=== PATIENT | male | born 1950 | race Caucasian/White ===

== ENCOUNTER 2016-12-17 09:02 | Emergency (ER) | payer OTHER ==
[~2016-12-17] VITALS: Ht 175.3 cm; Wt 113.4 kg
[~2016-12-17 09:02] MED LIST: CHOLESTYRAMINE P4 GM PO; DIABETA5 MG PO; GLUCOVANCE 51 TABLET PO; KEFLEX500 MG PO; KEPPRA500 MG PO; LEVETIRACETAM500 MG PO; LISINOPRIL20 MG PO; METFORMIN HCL500 MG PO; PRINIVIL10 MG PO; SIMVASTATIN40 MG PO; WARFARIN SODIUM1 MG PO; WARFARIN SODIUM2 MG PO; [UNRECOGNIZED DRUG - OTHER] BOTH EYES
[2016-12-17 09:47] LABS: HEMATOCRIT 45.6 % (38.0-50.0); MCHC 31.8 G/DL (30.0-36.0); MCV 84.9 FL (86-99); MEAN PLAT.VOLUME 9.2 uM^3 (9.0-12.4); PLATELET COUNT 355 K/uL (156-360); RED BLOOD COUNT 5.37 M/uL (4.00-5.50); WHITE BLOOD COUNT 10.5 K/uL (4.1-10.2)
[2016-12-17 09:57] LABS: CHLORIDE 104 mEq/L (99-109); POTASSIUM 4.8 mEq/L (3.7-5.4); SODIUM 139 mEq/L (136-147)
[2016-12-17 09:59] LABS: GLUCOSE 235 mg/dL (70-99)
[2016-12-17 10:00] LABS: ANION GAP 9 MEQ/L (2-14)
[2016-12-17 10:03] LABS: GFR ESTIMATE (CALCULATED) 59 mL/min/
[2016-12-17 10:04] LABS: UREA NITROGEN (BUN) 23 mg/dL (9-23)
[2016-12-17 10:09] LABS: ADD MIUA? NO; BILIRUBIN NEGATIVE; BLOOD NEGATIVE; COLOR STRAW ((YELLOW)); GLUCOSE (STRIP) >=500; KETONES NEGATIVE; LEUKOCYTES NEGATIVE; NITRITE NEGATIVE; PROTEIN (STRIP) 30; SPECIFIC GRAVITY 1.012 (1.000-1.030); UCUL ADDED? NO; UROBILINOGEN 0.2 MG/DL (0.2-1.0)
[2016-12-17] MEDS ORDERED: BACTRIM,SEPT1 TABLET PO ×2 (10:23→10:25)
[2016-12-17 10:28] VITALS: BP 146/88
== END 2016-12-17 10:50 | disposition home or self-care (01) ==
LOC: EME 09:02
PROVIDERS: Emergency Medicine
DX: M79.671 Pain in right foot (principal); R60.1 Generalized edema; E11.9 Type 2 diabetes mellitus without complications; I10 Essential (primary) hypertension; Z87.440 Personal history of urinary (tract) infections; Z79.84 Long term (current) use of oral hypoglycemic drugs
CPT/HCPCS: 80048; 81003; 85027; 87040; 99281; 99284

== ENCOUNTER 2017-10-10 09:55 | Day surgery (SDC) | payer OTHER ==
[~2017-10-10] VITALS: Ht 172.7 cm; Wt 122.9 kg
[~2017-10-10 09:55] MED LIST changes: +BACTRIM,SEPT1 TABLET PO; +GLYBURIDE5 MG PO; -LISINOPRIL20 MG PO; +LISINOPRIL30 MG PO; +PIOGLITAZONE HC45 MG PO
[2017-10-10 11:01] LABS: INTER. NORMALIZED RATIO 1.2
== END 2017-10-10 17:25 | disposition home or self-care (01) ==
LOC: CATH 09:55
PROVIDERS: Internal Medicine Cardiovascular Disease
PROC: 4A023N7 Measurement of Cardiac Sampling and Pressure, Left Heart, Percutaneous Approach (ICD-10-PCS; principal; 2017-10-10)
PROC: B2111ZZ Fluoroscopy of Multiple Coronary Arteries using Low Osmolar Contrast (ICD-10-PCS; principal; 2017-10-10)
DX: I25.10 Atherosclerotic heart disease of native coronary artery without angina pectoris (principal); I10 Essential (primary) hypertension; E78.5 Hyperlipidemia, unspecified; E11.9 Type 2 diabetes mellitus without complications; E66.01 Morbid (severe) obesity due to excess calories; Z68.41 Body mass index [BMI] 40.0-44.9, adult; Z86.711 Personal history of pulmonary embolism; Z86.718 Personal history of other venous thrombosis and embolism; Z79.01 Long term (current) use of anticoagulants; Z79.84 Long term (current) use of oral hypoglycemic drugs; Z82.49 Family history of ischemic heart disease and other diseases of the circulatory system
CPT/HCPCS: 82948; 85610; C1769; C1887; J1644; J2250; J3010